=== PATIENT | female | born 1995 | race Two or more races ===

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

== ENCOUNTER 2017-05-18 14:09 | Emergency (ER) | payer OTHER ==
[2017-05-18 14:34] VITALS: BP 139/86
--- NOTE | 2017-05-18 15:26 | ED ---
Throat Pain/Nasal Congestion - HPI Summary HPI Summary: Pt here w/ URI sx x 2 days. Started as rhinorrhea yesterday and woke with facial fullness/congestion today. Generalized REDDY. Denies fever, chills, N/V/D, otalgia but does report ear congestion. Denies ST, visual change, trouble breathing or swallowing and no cough or rash. Tried robitussin last night which helped her sleep but feels worse this morning. Would like ibuprofen for headache and facial pressure. Denies asthma, COPD -smokes but hasn't since this started - can't tolerate it. - History of Current Complaint Chief Complaint: EDGeneral Time Seen by Provider: 05/18/17 14:50 Hx Obtained From: Patient - Allergies/Home Medications Allergies/Adverse Reactions: Allergies Allergy/AdvReac Type Severity Reaction Status Date / Time Amoxicillin [From Augmentin] Allergy Unknown Verified 09/24/16 13:20 Reaction Details Azithromycin [From Zithromax] Allergy Unknown Verified 09/24/16 13:20 Reaction Details Clavulanic Acid Allergy Unknown Verified 09/24/16 13:20 [From Augmentin] Reaction Details PMH/Surg Hx/FS Hx/Imm Hx Previously Healthy: Yes Endocrine/Hematology History: Reports: Hx Diabetes - diet controlled Denies: Hx Thyroid Disease Cardiovascular History: Reports: Hx Hypercholesterolemia Denies: Hx Hypertension, Hx Peripheral Vascular Disease Respiratory History: Denies: Hx Asthma Musculoskeletal History: Denies: Hx Arthritis, Hx Rheumatoid Arthritis, Hx Back Problems, Hx Bursitis , Hx Congenital Bone Abnormalities, Hx Fibromyalgia, Hx Gout, Hx Orthopedic Injury, Hx Osteoporosis, Hx Scoliosis, Hx Tendonitis, Other Musculoskeletal History Sensory History: Reports: Hx Contacts or Glasses Denies: Hx Cataracts, Hx Glaucoma Opthamlomology History: Reports: Hx Contacts or Glasses Denies: Hx Cataracts, Hx Glaucoma Neurological History: Reports: Hx Headaches - when stressed Denies: Hx Dementia, Hx Developmental Delay, Hx Migraine, Hx Nerve Disease, Hx Seizures, Hx Spinal Cord Injury, Hx Transient Ischemic Attacks (TIA), Other Neuro Impairments/Disorders Psychiatric History: Denies: Hx Anxiety, Hx Eating Disorder, Hx Depression, Hx of Violent Episodes Against Others - Immunization History Date of Tetanus Vaccine: unk Date of Influenza Vaccine: unk Immunizations Up to Date: Yes Infectious Disease History: No Infectious Disease History: Denies: Hx Clostridium Difficile, Hx Hepatitis, Hx Human Immunodeficiency Virus (HIV), Hx of Known/Suspected MRSA, Hx Tuberculosis, Hx Known/Suspected VRE , Hx Known/Suspected VRSA, History Other Infectious Disease, Traveled Outside the [place] in Last 30 Days - Family History Known Family History: Negative: Seizure Disorder - Social History Occupation: Employed Part-time - [employer] Lives: With Family Alcohol Use: Rare Alcohol Amount: 2-4 drinks Hx Substance Use: Yes Substance Use Type: Reports: Marijuana - occasionally, recreationally Substance Use Comment - Amount & Last Used: once per week Hx Tobacco Use: Yes Smoking Status (MU): Current Every Day Smoker Type: Cigarettes Have You Smoked in the Last Year: No Review of Systems Constitutional: Negative Negative: Fever, Chills Positive: Photophobia - mild. Negative: Blurred Vision, Diplopia, Drainage, Erythema Positive: Nasal Discharge - nasal congestion. Negative: Sore Throat, Ear Ache Cardiovascular: Negative Negative: Chest Pain Respiratory: Negative Negative: Shortness Of Breath, Cough Gastrointestinal: Negative Negative: Abdominal Pain, Vomiting, Diarrhea, Nausea Positive: no symptoms reported Musculoskeletal: Negative Skin: Negative Positive: Headache - see HPI Psychological: Normal All Other Systems Reviewed And Are Negative: Yes Physical Exam Triage Information Reviewed: Yes Vital Signs On Initial Exam: Initial Vitals Temp Pulse Resp BP Pulse Ox 98.4 F 89 17 144/72 98 05/18/17 14:22 05/18/17 14:22 05/18/17 14:22 05/18/17 14:22 05/18/17 14:22 Vital Signs Reviewed: Yes Appearance: Positive: Well-Appearing, No Pain Distress, Obese Skin: Positive: Warm, Dry - no rash observed Head/Face: Positive: Normal Head/Face Inspection - warm to touch - sinuses NTTP Eyes: Positive: Normal, EOMI, CHOLO, Conjunctiva Clear. Negative: Conjunctiva Inflammed, Discharge ENT: Positive: Hearing grossly normal, Pharyngeal erythema - cobblestoning - no edema, Nasal congestion, Other - TM's occluded by cerumen B/L. Negative: Nasal drainage, Tonsillar swelling, Tonsillar exudate, Trismus Neck: Positive: Supple, Nontender, No Lymphadenopathy Respiratory/Lung Sounds: Positive: Clear to Auscultation, Breath Sounds Present. Negative: Rales, Rhonchi, Wheezes Cardiovascular: Positive: Normal, RRR, S1, S2 Abdomen Description: Positive: Nontender, No Organomegaly, Soft Bowel Sounds: Positive: Present Musculoskeletal: Positive: Normal, Strength/ROM Intact Neurological: Positive: Normal, Sensory/Motor Intact, Alert, Oriented to Person Place, Time, CN Intact II-III Psychiatric: Positive: Normal Diagnostics - Vital Signs Vital Signs Temp Pulse Resp BP Pulse Ox 05/18/17 14:32 98.4 F 78 18 139/86 98 05/18/17 14:22 98.4 F 89 17 144/72 98 - Laboratory Lab Statement: Any lab studies that have been ordered have been reviewed, and results considered in the medical decision making process. EENT Course/Dx - Diagnoses Provider Diagnoses: URI, acute Discharge - Discharge Plan Condition: Stable Disposition: HOME Patient Education Materials: Upper Respiratory Infection (ED) Forms: *Work Release Referrals: William Waters, AIRCRAFT ENGINE CYLINDER MECHANIC [Primary Care Provider] - Additional Instructions: Nasal wash (netti pot) & throat gargle 2 x day with 8 ounces of warm water + 1/ 4 teaspoon of salt You may try Afrin only as directed on bottle for sinus congestion/ear congestion - DO NOT OVERUSE You may also try Sudafed tablets for congestion - do not take before bed as they may be stimulating Drink 60+ ounces of water daily Sleep 8+ hours per night Avoid Dairy and sugar Hot herbal/decaf tea with lemon & honey Chicken broth (preferably organic, free range chicken) Cough drops/throat lozenges Humidifier in house, but especially near bed at night Try a facial steam with or without eucalyptus essential oil OR Vicks vapor rub Ibuprofen with food for pain, swelling Consider taking Vitamin D3 5,000iu and Vitamin C 1,000mg every day during illness Follow-up with PCP if symptoms persist or worsen
[2017-05-18] MEDS ORDERED: Ibuprofen TAB* 800 MG PO ONE (15:27)
== END 2017-05-18 16:31 | disposition home or self-care (01) ==
LOC: ED 14:09
DX: J06.9 Acute upper respiratory infection, unspecified (principal); J44.9 Chronic obstructive pulmonary disease, unspecified; E11.9 Type 2 diabetes mellitus without complications; E78.00 Pure hypercholesterolemia, unspecified; F17.210 Nicotine dependence, cigarettes, uncomplicated
CPT/HCPCS: 99282; A9270-GY

== ENCOUNTER 2017-05-20 12:29 | Emergency (ER) | payer OTHER ==
[2017-05-20 12:38] VITALS: BP 135/100
--- NOTE | 2017-05-20 13:36 | ED ---
Flakito Quinonez Alfonso, scribed for Alexsander Weathers MD on 05/20/17 at 1327 . Complex/Multi-Sys Presentation - HPI Summary HPI Summary: This patient is a 21 year old F presenting to [facility] with a chief complaint of sinus pressure since 4 days ago. She was seen at [facility] two days ago with a provider diagnosis of acute URI. The patient rates the pain 8/10 in severity. Symptoms aggravated by nothing. Symptoms alleviated by nothing. Symptoms not alleviated by OTC medications. Patient reports chills, SOB, productive cough ( yellow phlegm), headache, ear pain, and sore throat. Patient denies fever. Tobacco abuse disorder. PMHx includes HLD, anxiety and depression. - History Of Current Complaint Chief Complaint: EDUpperRespComplaint Time Seen by Provider: 05/20/17 13:19 Hx Obtained From: Patient Onset/Duration: Sudden Onset, Lasting Days - 4, Still Present Timing: Constant Severity Currently: Moderate Severity Initially: Moderate Aggravating Factor(s): Nothing Alleviating Factor(s): Nothing Associated Signs And Symptoms: Positive: Other - chills, SOB, productive cough ( yellow phlegm), headache, ear pain, and sore throat. Patient denies fever. - Allergies/Home Medications Allergies/Adverse Reactions: Allergies Allergy/AdvReac Type Severity Reaction Status Date / Time Amoxicillin [From Augmentin] Allergy Unknown Verified 09/24/16 13:20 Reaction Details Azithromycin [From Zithromax] Allergy Unknown Verified 09/24/16 13:20 Reaction Details Clavulanic Acid Allergy Unknown Verified 09/24/16 13:20 [From Augmentin] Reaction Details PMH/Surg Hx/FS Hx/Imm Hx Endocrine/Hematology History: Reports: Hx Diabetes - diet controlled Denies: Hx Thyroid Disease Cardiovascular History: Reports: Hx Hypercholesterolemia Denies: Hx Hypertension, Hx Peripheral Vascular Disease Respiratory History: Denies: Hx Asthma Musculoskeletal History: Denies: Hx Arthritis, Hx Rheumatoid Arthritis, Hx Back Problems, Hx Bursitis , Hx Congenital Bone Abnormalities, Hx Fibromyalgia, Hx Gout, Hx Orthopedic Injury, Hx Osteoporosis, Hx Scoliosis, Hx Tendonitis, Other Musculoskeletal History Sensory History: Reports: Hx Contacts or Glasses Denies: Hx Cataracts, Hx Glaucoma Opthamlomology History: Reports: Hx Contacts or Glasses Denies: Hx Cataracts, Hx Glaucoma Neurological History: Reports: Hx Headaches - when stressed Denies: Hx Dementia, Hx Developmental Delay, Hx Migraine, Hx Nerve Disease, Hx Seizures, Hx Spinal Cord Injury, Hx Transient Ischemic Attacks (TIA), Other Neuro Impairments/Disorders Psychiatric History: Denies: Hx Anxiety, Hx Eating Disorder, Hx Depression, Hx of Violent Episodes Against Others - Immunization History Date of Tetanus Vaccine: unk Date of Influenza Vaccine: unk Infectious Disease History: No Infectious Disease History: Denies: Hx Clostridium Difficile, Hx Hepatitis, Hx Human Immunodeficiency Virus (HIV), Hx of Known/Suspected MRSA, Hx Tuberculosis, Hx Known/Suspected VRE , Hx Known/Suspected VRSA, History Other Infectious Disease, Traveled Outside the [place] in Last 30 Days - Family History Known Family History: Negative: Seizure Disorder - Social History Alcohol Use: Rare Alcohol Amount: 2-4 drinks Hx Substance Use: Yes Substance Use Type: Reports: Marijuana - occasionally, recreationally Substance Use Comment - Amount & Last Used: once per week Hx Tobacco Use: Yes Smoking Status (MU): Current Every Day Smoker Type: Cigarettes Have You Smoked in the Last Year: No Review of Systems Positive: Chills. Negative: Fever Positive: Sore Throat, Ear Ache, Other - Sinus pressure Positive: Shortness Of Breath, Cough Positive: Headache All Other Systems Reviewed And Are Negative: Yes Physical Exam Triage Information Reviewed: Yes Vital Signs On Initial Exam: Initial Vitals Temp Pulse Resp BP Pulse Ox 97.4 F 98 16 135/100 100 05/20/17 12:34 05/20/17 12:34 05/20/17 12:34 05/20/17 12:34 05/20/17 12:34 Vital Signs Reviewed: Yes Appearance: Positive: No Pain Distress, Ill-Appearing - Mild Skin: Positive: Warm, Skin Color Reflects Adequate Perfusion, Dry Head/Face: Positive: Normal Head/Face Inspection Eyes: Positive: EOMI, CHOLO ENT: Positive: Normal ENT inspection, Other - Posterior pharynx benign Neck: Positive: Supple, Nontender Respiratory/Lung Sounds: Positive: Breath Sounds Present, Other - Fine scattered rhonchi. No wheezing. Cardiovascular: Positive: RRR Abdomen Description: Positive: Nontender, Soft Bowel Sounds: Positive: Present Musculoskeletal: Positive: Normal, Strength/ROM Intact Neurological: Positive: Normal, Sensory/Motor Intact, Alert, Oriented to Person Place, Time Psychiatric: Positive: Affect/Mood Appropriate Diagnostics - Vital Signs Vital Signs Temp Pulse Resp BP Pulse Ox 05/20/17 12:34 97.4 F 98 16 135/100 100 - Laboratory Lab Statement: Any lab studies that have been ordered have been reviewed, and results considered in the medical decision making process. Complex Multi-Symp Course/Dx Course Of Treatment: Rx Doxy and albuterol - Diagnoses Provider Diagnoses: Bronchitis with bronchospasm Discharge - Discharge Plan Condition: Stable Disposition: HOME Prescriptions: Albuterol HFA INHALER* [Ventolin HFA Inhaler*] 1 - 2 puff INH Q4H PRN #1 mdi PRN Reason: Dyspnea DOXYcycline CAP(*) [DOXYcycline 100MG CAP(*)] 100 mg PO BID #20 cap Patient Education Materials: Acute Bronchitis (ED), Bronchospasm (ED), Wheezing (ED) Forms: *Work Release Referrals: William Waters, CHILD AND FAMILY COUNSELOR [Primary Care Provider] - Additional Instructions: FOLLOW UP WITH YOUR DOCTOR. RETURN TO THE EMERGENCY DEPARTMENT FOR ANY WORSENING OF YOUR CONDITION OR QUESTIONS OR CONCERNS. The documentation as recorded by the Flakito medel Alfonso accurately reflects the service I personally performed and the decisions made by me, Alexsander Weathers MD.
== END 2017-05-20 13:49 | disposition home or self-care (01) ==
LOC: ED 12:29
DX: J40 Bronchitis, not specified as acute or chronic (principal)
CPT/HCPCS: 99281

== ENCOUNTER → 2018-01-06 18:15 | Emergency (ER) | payer SELFPAY ==
--- NOTE | 2018-01-06 19:39 | RAD ---
INDICATION: Left hand injury. TECHNIQUE: 4 views of the left hand were obtained. FINDINGS: The bones are in normal alignment. No fracture is seen. Joint spaces appear maintained. IMPRESSION: NO EVIDENCE FOR FRACTURE.
[2018-01-06 20:17] VITALS: BP 134/84
--- NOTE | 2018-01-06 20:41 | ED ---
Upper Extremity Pain - HPI Summary HPI Summary: Pt. is a 22-year-old female who presents emergency department for pain to her left hand. Majority of pain is located along the left thumb extending into forearm. Pain is worse with movement of hand and cramping. Pt. notes she uses her hands constantly at work as she works at [employer] and a [employer]. Patient does not recall any specific injuries. Has been taking Motrin with mild relief of pain. Symptoms are mild in severity. - History of Current Complaint Chief Complaint: EDExtremityUpper Stated Complaint: LT HAND PAIN Time Seen by Provider: 01/06/18 18:34 Hx Obtained From: Patient Hx Last Menstrual Period: 10/04/12 - Allergies/Home Medications Allergies/Adverse Reactions: Allergies Allergy/AdvReac Type Severity Reaction Status Date / Time amoxicillin [From Augmentin] Allergy Unknown Verified 01/06/18 18:36 Reaction Details azithromycin [From Zithromax] Allergy Unknown Verified 01/06/18 18:36 Reaction Details clavulanic acid Allergy Unknown Verified 01/06/18 18:36 [From Augmentin] Reaction Details Home Medications: Home Medications NK [No Home Medications Reported] 01/06/18 [History Confirmed 01/06/18] PMH/Surg Hx/FS Hx/Imm Hx Previously Healthy: Yes Endocrine/Hematology History: Reports: Hx Diabetes - diet controlled Denies: Hx Thyroid Disease Cardiovascular History: Reports: Hx Hypercholesterolemia Denies: Hx Hypertension, Hx Peripheral Vascular Disease Respiratory History: Denies: Hx Asthma Musculoskeletal History: Denies: Hx Arthritis, Hx Rheumatoid Arthritis, Hx Back Problems, Hx Bursitis , Hx Congenital Bone Abnormalities, Hx Fibromyalgia, Hx Gout, Hx Orthopedic Injury, Hx Osteoporosis, Hx Scoliosis, Hx Tendonitis, Other Musculoskeletal History Sensory History: Reports: Hx Contacts or Glasses Denies: Hx Cataracts, Hx Glaucoma Opthamlomology History: Reports: Hx Contacts or Glasses Denies: Hx Cataracts, Hx Glaucoma Neurological History: Reports: Hx Headaches - when stressed Denies: Hx Dementia, Hx Developmental Delay, Hx Migraine, Hx Nerve Disease, Hx Seizures, Hx Spinal Cord Injury, Hx Transient Ischemic Attacks (TIA), Other Neuro Impairments/Disorders Psychiatric History: Denies: Hx Anxiety, Hx Eating Disorder, Hx Depression, Hx of Violent Episodes Against Others - Immunization History Date of Tetanus Vaccine: unk Date of Influenza Vaccine: unk Infectious Disease History: No Infectious Disease History: Denies: Hx Clostridium Difficile, Hx Hepatitis, Hx Human Immunodeficiency Virus (HIV), Hx of Known/Suspected MRSA, Hx Tuberculosis, Hx Known/Suspected VRE , Hx Known/Suspected VRSA, History Other Infectious Disease, Traveled Outside the [place] in Last 30 Days - Family History Known Family History: Negative: Seizure Disorder - Social History Occupation: Employed Full-time Lives: With Family Alcohol Use: None Alcohol Amount: 2-4 drinks Hx Substance Use: Yes Substance Use Type: Reports: None Substance Use Comment - Amount & Last Used: once per week Hx Tobacco Use: Yes Smoking Status (MU): Heavy Every Day Tobacco Smoker Type: Cigarettes Have You Smoked in the Last Year: No Review of Systems Positive: Other - left hand pain Negative: Weakness, Paresthesia, Numbness All Other Systems Reviewed And Are Negative: Yes Physical Exam Triage Information Reviewed: Yes Vital Signs On Initial Exam: Initial Vitals Temp Pulse Resp BP Pulse Ox 98.1 F 94 16 131/73 100 01/06/18 18:17 01/06/18 18:17 01/06/18 18:17 01/06/18 18:17 01/06/18 18:17 Vital Signs Reviewed: Yes Appearance: Positive: Well-Appearing - Patient sitting on bed in no acute distress. Pleasant. Skin: Positive: Warm, Dry Head/Face: Positive: Normal Head/Face Inspection Eyes: Positive: Normal, CHOLO Neck: Positive: Supple Musculoskeletal: Positive: Other - Pain on palpation to the left thumb that extends forearm. Positive Laura test. No edema, ecchymosis, wounds, erythema, induration or fluctuance. Extremities is neurovascularly intact. Neurological: Positive: Normal, CN Intact II-III Psychiatric: Positive: Normal Procedures - Splinting Pre-Made Type: velcro Pre-Proc Neuro Vasc Exam: normal Post-Proc Neuro Vasc Exam: normal Diagnostics - Vital Signs Vital Signs Temp Pulse Resp BP Pulse Ox 01/06/18 20:16 98 F 82 17 134/84 100 01/06/18 18:17 98.1 F 94 16 131/73 100 - Laboratory Lab Statement: Any lab studies that have been ordered have been reviewed, and results considered in the medical decision making process. Course/Dx - Course Course Of Treatment: Patient presenting with atraumatic pain to her left hand. Suspect tendinitis due to overuse. X-rays negative for acute findings, reading per radiology. Results were discussed. Velcro wrist splint was placed for comfort. Advised patient to ice and elevate intermittently. NSAIDs for pain as directed. Activity as tolerated. Follow-up with PCP. Patient understands and agrees with plan. - Diagnoses Differential Diagnosis/HQI/PQRI: Positive: Arthritis, Contusion, Fracture ( Closed), Strain, Sprain Provider Diagnoses: Tendinitis Discharge - Sign-Out/Discharge Documenting (check all that apply): Discharge/Admit/Transfer - Discharge Plan Condition: Good Disposition: HOME Patient Education Materials: Tendinitis (ED) Referrals: William Waters, [employer] [Primary Care Provider] - Additional Instructions: Schedule a follow up appointment with PCP Wear splint for comfort Ice and elevate NSAIDS for pain as directed Avoid over use - Billing Disposition and Condition Condition: GOOD Disposition: HOME
== END | disposition home or self-care (01) ==
LOC: ED 18:15
DX: M77.9 Enthesopathy, unspecified (principal); M79.642 Pain in left hand; F17.210 Nicotine dependence, cigarettes, uncomplicated
CPT/HCPCS: 99282

== ENCOUNTER 2018-06-04 14:34 | Emergency (ER) | payer SELFPAY ==
--- NOTE | 2018-06-04 16:03 | RAD ---
HISTORY: r/o ectopic , age by dates of 7 weeks and 0 days COMPARISONS: None TECHNIQUE: Multiple transverse and longitudinal ultrasound images were obtained of the pelvis using grayscale and color Doppler imaging using the endovaginal transducer. FINDINGS: UTERUS: The uterus is normal in shape, size, contour, and echotexture. GESTATION: There is a small cyst of the endometrium, possibly a gestational sac. . The mean sac diameter measures 0.29 cm for a gestational age of 4 weeks and 5 days . The JOAO is February 06, 2019. This is discordant with the age by dates . The endometrium measures 1.2 cm. cardiac motion is not detected Gross movement is not identified. anatomy cannot be assessed secondary to early dates. The amniotic fluid is qualitatively normal. There are no retroplacental fluid collections. CUL-DE-SAC: There is no free fluid within the cul-de-sac. RIGHT OVARY: The right ovary measures 2.5 x 2.4 x 2.1 cm. There is a corpus luteum measuring 1.6 x 1.3 x 1.2 LEFT OVARY: The left ovary measures 3.2 x 1.8 x 1.6 cm. The left ovary is unremarkable. BLADDER: The bladder is not well visualized. IMPRESSION: 1. THERE IS A SMALL CYSTIC STRUCTURE IN THE ENDOMETRIUM WHICH MAY REPRESENT A GESTATIONAL SAC WITHOUT POLE. BASED ON MEAN SAC DIAMETER, THIS CORRESPONDS TO GESTATIONAL AGE OF 4 WEEKS AND 5 DAYS, WHICH IS DISCORDANT WITH THE AGE BY DATES. 2. RECOMMEND CORRELATION WITH SERIAL BETA-HCG LEVELS AND FOLLOW-UP IMAGING.
[2018-06-04 16:22] LABS: ABS Basophils 0 10^3/ul (0-0.2); ABS Eosinophils 0.2 10^3/ul (0-0.6); ABS Lymphocytes 2.6 10^3/ul (1.0-4.8); ABS Monocytes 0.6 10^3/ul (0-0.8); ABS Neutrophils 6.4 10^3/ul (1.5-7.7); ABS Nucleated RBC 0 10^3/ul; Eosinophil % 1.8 % (0-6); Hematocrit 41 % (35-47); Hemoglobin 14.1 g/dl (12.0-16.0); Lymphocyte % 26.3 % (25-47); Mean Corpuscular HGB Conc 35 g/dl (31-36); Mean Corpuscular Hemoglobin 29 pg (27-31); Mean Corpuscular Volume 84 fL (80-97); Mean Platelet Volume 7.9 um3 (7.4-10.4); Nucleated Red Blood Cells % 0; Platelet Count 290 10^3/ul (150-450); Red Blood Count 4.84 10^6/ul (4.00-5.40); Red Cell Distribution Width 13 % (10.5-15); White Blood Count 9.8 10^3/ul (3.5-10.8)
[2018-06-04 16:46] LABS: EGFR Non-African American 110.3 (>60)
--- NOTE | 2018-06-04 18:25 | ED ---
- HPI Summary HPI Summary: [facility] by [facility] for further evaluation to rule out possible ectopic . Patient states this is first time , unsure how far along she is. Patient states she has been having bilateral lower abdominal cramps for one week. Cramping described as intermittent, approximately one every 45 minutes, lasting for a few minutes each time. Denies vaginal discharge, pain, bleeding, urinary symptoms, N/V, fever, SOB, CP. Medical history is DM. - History of Current Complaint Chief Complaint: EDOBProblems Stated Complaint: POSSIBLE ECTOPIC Time Seen by Provider: 06/04/18 17:15 Hx Obtained From: Patient Chief Complaint: Pain Onset/Duration: Started Days Ago Timing: Intermittent, Lasting Minutes Severity: Moderate Current Severity: Moderate Pain Intensity: 4 Location of Pain: Left Side, Right Side Character: Cramping Aggravating Factors: Nothing Alleviating Factors: Nothing - Assessment Hx Now: No - Allergies/Home Medications Allergies/Adverse Reactions: Allergies Allergy/AdvReac Type Severity Reaction Status Date / Time amoxicillin [From Augmentin] Allergy Unknown Verified 01/06/18 18:36 Reaction Details azithromycin [From Zithromax] Allergy Unknown Verified 01/06/18 18:36 Reaction Details clavulanic acid Allergy Unknown Verified 01/06/18 18:36 [From Augmentin] Reaction Details PMH/Surg Hx/FS Hx/Imm Hx Endocrine/Hematology History: Reports: Hx Diabetes - diet controlled Denies: Hx Anticoagulant Therapy, Hx Thyroid Disease Cardiovascular History: Reports: Hx Hypercholesterolemia Denies: Hx Cardiac Arrest, Hx Hypertension, Hx Peripheral Vascular Disease Respiratory History: Denies: Hx Asthma History: Denies: Hx Dialysis Musculoskeletal History: Denies: Hx Arthritis, Hx Rheumatoid Arthritis, Hx Back Problems, Hx Bursitis , Hx Congenital Bone Abnormalities, Hx Fibromyalgia, Hx Gout, Hx Orthopedic Injury, Hx Osteoporosis, Hx Scoliosis, Hx Tendonitis, Other Musculoskeletal History Sensory History: Reports: Hx Contacts or Glasses Denies: Hx Cataracts, Hx Glaucoma Opthamlomology History: Reports: Hx Contacts or Glasses Denies: Hx Cataracts, Hx Glaucoma Neurological History: Reports: Hx Headaches - when stressed Denies: Hx Dementia, Hx Developmental Delay, Hx Migraine, Hx Nerve Disease, Hx Seizures, Hx Spinal Cord Injury, Hx Transient Ischemic Attacks (TIA), Other Neuro Impairments/Disorders Psychiatric History: Denies: Hx Anxiety, Hx Eating Disorder, Hx Depression, Hx of Violent Episodes Against Others - Immunization History Date of Tetanus Vaccine: unk Date of Influenza Vaccine: unk Infectious Disease History: No Infectious Disease History: Denies: Hx Clostridium Difficile, Hx Hepatitis, Hx Human Immunodeficiency Virus (HIV), Hx of Known/Suspected MRSA, Hx Tuberculosis, Hx Known/Suspected VRE , Hx Known/Suspected VRSA, History Other Infectious Disease, Traveled Outside the [place] in Last 30 Days - Family History Known Family History: Negative: Seizure Disorder - Social History Alcohol Use: None Alcohol Amount: 2-4 drinks Hx Substance Use: Yes Substance Use Type: Reports: None Substance Use Comment - Amount & Last Used: once per week Hx Tobacco Use: Yes Smoking Status (MU): Heavy Every Day Tobacco Smoker Type: Cigarettes Have You Smoked in the Last Year: No Review of Systems Constitutional: Negative Eyes: Negative ENT: Negative Cardiovascular: Negative Respiratory: Negative Positive: Abdominal Pain Genitourinary: Negative Musculoskeletal: Negative Skin: Negative Neurological: Negative Psychological: Normal All Other Systems Reviewed And Are Negative: Yes Physical Exam - Summary Physical Exam Summary: Patient mildly tender to palpation right lower quadrant and left lower quadrant. Abdominal exam otherwise unremarkable. - Physical Exam Triage Information Reviewed: Yes Vital Signs Reviewed: Yes Appearance: Positive: Well-Appearing Skin: Positive: Warm Head/Face: Positive: Normal Head/Face Inspection Eyes: Positive: Normal Neck: Positive: Supple Respiratory/Lung Sounds: Positive: Clear to Auscultation Cardiovascular: Positive: Normal Abdomen Description: Positive: Other: Musculoskeletal: Positive: Normal Neurological: Positive: Normal Psychiatric: Positive: Normal AVPU Assessment: Alert - Rigoberto Coma Scale Eye: 4 - Spontaneous Motor: 6 - Obeys Commands Verbal: 5 - Oriented Coma Scale Total: 15 Diagnostics - Vital Signs Vital Signs Temp Pulse Resp BP Pulse Ox 06/04/18 17:24 120/76 06/04/18 17:23 113 96 06/04/18 14:37 97.0 F 96 17 140/75 97 - Laboratory Lab Results: Lab Results 06/04/18 06/04/18 06/04/18 Range/Units 16:12 16:12 16:12 WBC 9.8 (3.5-10.8) 10^3/ul RBC 4.84 (4.00-5.40) 10^6/ul Hgb 14.1 (12.0-16.0) g/dl Hct 41 (35-47) % MCV 84 (80-97) fL MCH 29 (27-31) pg MCHC 35 (31-36) g/dl RDW 13 (10.5-15) % Plt Count 290 (150-450) 10^3/ul MPV 7.9 (7.4-10.4) um3 Neut % (Auto) 65.5 (38-83) % Lymph % (Auto) 26.3 (25-47) % Irion % (Auto) 5.9 (0-7) % Eos % (Auto) 1.8 (0-6) % Baso % (Auto) 0.5 (0-2) % Absolute Neuts (auto) 6.4 (1.5-7.7) 10^3/ul Absolute Lymphs (auto) 2.6 (1.0-4.8) 10^3/ul Absolute Monos (auto) 0.6 (0-0.8) 10^3/ul Absolute Eos (auto) 0.2 (0-0.6) 10^3/ul Absolute Basos (auto) 0 (0-0.2) 10^3/ul Absolute Nucleated RBC 0 10^3/ul Nucleated RBC % 0 Sodium 136 (135-145) mmol/L Potassium 3.8 (3.5-5.0) mmol/L Chloride 107 (101-111) mmol/L Carbon Dioxide 23 (22-32) mmol/L Anion Gap 6 (2-11) mmol/L BUN 11 (6-24) mg/dL Creatinine 0.68 (0.51-0.95) mg/dL Est GFR ( Amer) 133.5 (>60) Est GFR (Non-Af Amer) 110.3 (>60) BUN/Creatinine Ratio 16.2 (8-20) Glucose 109 H (70-100) mg/dL Calcium 9.4 (8.6-10.3) mg/dL Total Bilirubin 0.30 (0.2-1.0) mg/dL AST 17 (13-39) U/L ALT 32 (7-52) U/L Alkaline Phosphatase 43 (34-104) U/L C-Reactive Protein 8.88 H (<8.01) mg/L Total Protein 7.2 (6.4-8.9) g/dL Albumin 4.1 (3.2-5.2) g/dL Globulin 3.1 (2-4) g/dL Albumin/Globulin Ratio 1.3 (1-3) TSH 1.54 (0.34-5.60) mcIU/mL Beta HCG, Quant Cancelled 06/04/18 Range/Units 16:12 WBC (3.5-10.8) 10^3/ul RBC (4.00-5.40) 10^6/ul Hgb (12.0-16.0) g/dl Hct (35-47) % MCV (80-97) fL MCH (27-31) pg MCHC (31-36) g/dl RDW (10.5-15) % Plt Count (150-450) 10^3/ul MPV (7.4-10.4) um3 Neut % (Auto) (38-83) % Lymph % (Auto) (25-47) % Irion % (Auto) (0-7) % Eos % (Auto) (0-6) % Baso % (Auto) (0-2) % Absolute Neuts (auto) (1.5-7.7) 10^3/ul Absolute Lymphs (auto) (1.0-4.8) 10^3/ul Absolute Monos (auto) (0-0.8) 10^3/ul Absolute Eos (auto) (0-0.6) 10^3/ul Absolute Basos (auto) (0-0.2) 10^3/ul Absolute Nucleated RBC 10^3/ul Nucleated RBC % Sodium (135-145) mmol/L Potassium (3.5-5.0) mmol/L Chloride (101-111) mmol/L Carbon Dioxide (22-32) mmol/L Anion Gap (2-11) mmol/L BUN (6-24) mg/dL Creatinine (0.51-0.95) mg/dL Est GFR ( Amer) (>60) Est GFR (Non-Af Amer) (>60) BUN/Creatinine Ratio (8-20) Glucose (70-100) mg/dL Calcium (8.6-10.3) mg/dL Total Bilirubin (0.2-1.0) mg/dL AST (13-39) U/L ALT (7-52) U/L Alkaline Phosphatase (34-104) U/L C-Reactive Protein (<8.01) mg/L Total Protein (6.4-8.9) g/dL Albumin (3.2-5.2) g/dL Globulin (2-4) g/dL Albumin/Globulin Ratio (1-3) TSH (0.34-5.60) mcIU/mL Beta HCG, Quant 252.70 Result Diagrams: 06/04/18 16:12 06/04/18 16:12 Lab Statement: Any lab studies that have been ordered have been reviewed, and results considered in the medical decision making process. Course/Dx - Course Course Of Treatment: [facility] for further evaluation to rule out possible ectopic . Patient states this is first time , unsure how far along she is. Patient states she has been having bilateral lower abdominal cramps for one week. Cramping described as intermittent, approximately one every 45 minutes, lasting for a few minutes each time. Denies vaginal discharge, pain, bleeding, urinary symptoms, N/V, fever, SOB, CP. Medical history is DM. . Physical exam: Patient mildly tender to palpation right lower quadrant and left lower quadrant. Abdominal exam otherwise unremarkable. HCG 257. Ultrasound negative at this point for ectopic. Gestational age approximated at 4 weeks, 5 days. Vital signs within normal limits. Repeat serial hCG and serial ultrasounds. Patient understands and approves of plan. - Diagnoses Provider Diagnoses: Discharge - Sign-Out/Discharge Documenting (check all that apply): Patient Departure - Discharge Plan Condition: Stable Disposition: HOME Patient Education Materials: (ED) Referrals: William Waters, [facility] [Primary Care Provider] - Additional Instructions: HCG 252 today. Repeat hCG level and ultrasound in 48 hours. Follow-up with OB/ [facility] CAREG[facility]. Return to the ED for any new or worsening symptoms - Billing Disposition and Condition Condition: STABLE Disposition: Home
[2018-06-04 18:38] VITALS: BP 142/95
== END 2018-06-04 18:40 | disposition home or self-care (01) ==
LOC: ED 14:34
DX: O26.891 Other specified pregnancy related conditions, first trimester (principal); Z3A.01 Less than 8 weeks gestation of pregnancy; R10.2 Pelvic and perineal pain; O99.331 Smoking (tobacco) complicating pregnancy, first trimester; F17.210 Nicotine dependence, cigarettes, uncomplicated; Z88.1 Allergy status to other antibiotic agents; E11.9 Type 2 diabetes mellitus without complications; E78.00 Pure hypercholesterolemia, unspecified
CPT/HCPCS: 36415; 76817; 80053; 84443; 84702; 85025; 86140; 99282

== ENCOUNTER 2018-10-25 18:50 | Emergency (ER) | payer BC, MEDICAID ==
--- NOTE | 2018-10-25 19:27 | ED ---
Shortness of Breath - HPI Summary HPI Summary: A 23 y/o female brought in by [facility] ambulance presents to [facility] with a chief complaint of left sided chest pain since 16:45 10/25/18. The patient reports that she was about 30 minutes into her shift at work when she started feeling chest pain. She describes her pain as constantly dull with intermittent sharp spurts of pain. She says that her pain is under her left lower ribs. At triage the patient rated her pain as a 0/10 in severity. She claims that at work she had a stomach ache and a headache. She was drinking coffee, and then when her chest pain started she drank water and went outside to smoke when she felt like she couldnt take deep breaths. She denies SOB but claims that she was having trouble taking deep breaths. She thought that she was having an allergic reaction to MSG from a sandwich. She claims that her last attack was 5-6 years ago. She took 400mg ibuprofen and used an inhaler prior to the ambulance ride to the ED. She denies current N/V, abdominal pain, dysuria, hematuria, diarrhea , constipation, leg swelling, or any recent travels or surgery. She is still feeling lightheaded. Exertion aggravates her pain. She reports that ever since she started smoking she felt colder. She started smoking 5 years [employer]. Her LNMP was 09/30/18. She denies a Hx of asthma but she has a FHx of asthma and PR. Vital signs while in room HR: 86bpm, O2 Sat: 98, BP: 128/54 - History of Current Complaint Chief Complaint: EDShortnessOfBreath Hx Obtained From: Patient Onset/Duration: Sudden Onset, Lasting Minutes, Still Present Timing: Constant Current Severity: Mild Dyspnea At: Exertion Aggrevating Factors: Deep Breaths Alleviating Factors: Nothing Associated Signs & Symptoms: Negative - Allergy/Home Medications Allergies/Adverse Reactions: Allergies Allergy/AdvReac Type Severity Reaction Status Date / Time amoxicillin [From Augmentin] Allergy Unknown Verified 10/25/18 19:04 Reaction Details azithromycin [From Zithromax] Allergy Unknown Verified 10/25/18 19:04 Reaction Details clavulanic acid Allergy Unknown Verified 10/25/18 19:04 [From Augmentin] Reaction Details PMH/Surg Hx/FS Hx/Imm Hx Endocrine/Hematology History: Reports: Hx Diabetes - diet controlled Denies: Hx Anticoagulant Therapy, Hx Thyroid Disease Cardiovascular History: Reports: Hx Hypercholesterolemia Denies: Hx Cardiac Arrest, Hx Hypertension, Hx Peripheral Vascular Disease Respiratory History: Denies: Hx Asthma History: Denies: Hx Dialysis Musculoskeletal History: Denies: Hx Arthritis, Hx Rheumatoid Arthritis, Hx Back Problems, Hx Bursitis , Hx Congenital Bone Abnormalities, Hx Fibromyalgia, Hx Gout, Hx Orthopedic Injury, Hx Osteoporosis, Hx Scoliosis, Hx Tendonitis, Other Musculoskeletal History Sensory History: Reports: Hx Contacts or Glasses Denies: Hx Cataracts, Hx Glaucoma Opthamlomology History: Reports: Hx Contacts or Glasses Denies: Hx Cataracts, Hx Glaucoma Neurological History: Reports: Hx Headaches - when stressed Denies: Hx Dementia, Hx Developmental Delay, Hx Migraine, Hx Nerve Disease, Hx Seizures, Hx Spinal Cord Injury, Hx Transient Ischemic Attacks (TIA), Other Neuro Impairments/Disorders Psychiatric History: Denies: Hx Anxiety, Hx Eating Disorder, Hx Depression, Hx of Violent Episodes Against Others - Immunization History Date of Tetanus Vaccine: unk Date of Influenza Vaccine: unk Infectious Disease History: No Infectious Disease History: Denies: Hx Clostridium Difficile, Hx Hepatitis, Hx Human Immunodeficiency Virus (HIV), Hx of Known/Suspected MRSA, Hx Tuberculosis, Hx Known/Suspected VRE , Hx Known/Suspected VRSA, History Other Infectious Disease, Traveled Outside the [place] in Last 30 Days - Family History Known Family History: Positive: Cardiac Disease Negative: Seizure Disorder - Social History Alcohol Use: None Alcohol Amount: 2-4 drinks Hx Substance Use: Yes Substance Use Type: Reports: None Substance Use Comment - Amount & Last Used: once per week Hx Tobacco Use: Yes Smoking Status (MU): Heavy Every Day Tobacco Smoker Type: Cigarettes Have You Smoked in the Last Year: No Review of Systems Negative: Fever Positive: Chest Pain Positive: Other - Positive: difficulty with deep breaths. Negative: Shortness Of Breath Gastrointestinal: Negative - constipation Negative: Abdominal Pain, Vomiting, Nausea Negative: dysuria, hematuria Musculoskeletal: Negative - leg swelling All Other Systems Reviewed And Are Negative: Yes Physical Exam - Summary Physical Exam Summary: Constitutional: Well-developed, Well-nourished, Alert. (-) Distressed Skin: Warm, Dry HENT: Normocephalic; Atraumatic Eyes: Conjunctiva normal Neck: Musculoskeletal ROM normal neck. (-) JVD, (-) Stridor, (-) Tracheal deviation Cardio: Rhythm regular, rate normal, Heart sounds normal; Intact distal pulses; The pedal pulses are 2+ and symmetric. Radial pulses are 2+ and symmetric. (-) Murmur Pulmonary/Chest wall: Effort normal. (-) Respiratory distress, (-) Wheezes, (-) Rales Abd: Soft, (-) epigastric tenderness, (-) Distension, (-) Guarding, (-) Rebound Musculoskeletal: (-) Edema Lymph: (-) Cervical adenopathy Neuro: Alert, Oriented x3 Psych: anxious Triage Information Reviewed: Yes Vital Signs On Initial Exam: Initial Vitals Temp Pulse Resp BP Pulse Ox 97.7 F 85 18 124/76 99 10/25/18 19:02 10/25/18 19:02 10/25/18 19:02 10/25/18 19:02 10/25/18 19:02 Vital Signs Reviewed: Yes Diagnostics - Vital Signs Vital Signs Temp Pulse Resp BP Pulse Ox 10/25/18 19:02 97.7 F 85 18 124/76 99 - Laboratory Result Diagrams: 10/25/18 19:57 10/25/18 19:57 Lab Statement: Any lab studies that have been ordered have been reviewed, and results considered in the medical decision making process. - Radiology CXR Radiology Interpretation Completed By: ED Physician Summary of Radiographic Findings: No acute disease. Pending official imaging report. - EKG 19:45 Cardiac Rate: NL - 84 bpm EKG Rhythm: Sinus Rhythm Summary of EKG Findings: Normal sinus rhythm at 84bpm, sI, qIII, tIII, normal MI , normal QRS, normal QTc, normal axis, normal ST, normal T-waves, nonspecific EKG. Not similar to EKG done 11/04/13. Re-Evaluation - Re-Evaluation First Eval Re-Evaluation Time: 21:10 Change: Improved Comment: Patient is feeling better Course/Dx - Course Course Of Treatment: A 23 y/o female brought in by [facility] ambulance presents to [facility] with a chief complaint of left sided chest pain since 16:45 10/25/18. The patient has a Hx of DM, a FHx of PR and is a light every day smoker. The physical exam was unremarkable other than the patient appearing anxious. EKG at 19:45 showed Normal sinus rhythm at 84bpm, sI, qIII, tIII, normal MI, normal QRS , normal QTc, normal axis, normal ST, normal T-waves, nonspecific EKG. Not similar to EKG done 11/04/13. In the ED course the patient was given 1 gm in 100 mls at 200mls/hr IV Magnesium sulfate/dextrose from 20:58-21:27 .Blood work and chemistries obtained and are WNL. Upon re-eval the patient was feeling better. The patient will be discharged home and is agreeable with this plan. - Diagnoses Provider Diagnoses: Chest pain Discharge - Sign-Out/Discharge Documenting (check all that apply): Patient Departure - DC Patient Received Moderate/Deep Sedation with Procedure: No - Discharge Plan Condition: Good Disposition: HOME Patient Education Materials: Chest Pain (ED) Print Language: INDIAN Forms: *Work Release Referrals: William Waters, [employer] [Primary Care Provider] - Additional Instructions: Return to the ED if you experience any new or worsening symptoms. - Billing Disposition and Condition Condition: GOOD Disposition: Home - Attestation Statements Document Initiated by Héctor: Yes Documenting Scribe: Tarun Fagan Provider For Whom Laliibe is Documenting (Include Credential): Janae Bess MD Scribe Attestation: I, Tarun Fagan, scribed for Janae Shaikh MD on 10/25/18 at 2354. Scribe Documentation Reviewed: Yes Provider Attestation: The documentation as recorded by the Tarun medel accurately reflects the service I personally performed and the decisions made by me, Janae Shaikh MD Status of Scribe Document: Viewed
[2018-10-25 20:03] LABS: ABS Basophils 0.1 10^3/ul (0-0.2); ABS Eosinophils 0.2 10^3/ul (0-0.6); ABS Monocytes 0.7 10^3/ul (0-0.8); ABS Neutrophils 6.9 10^3/ul (1.5-7.7); ABS Nucleated RBC 0 10^3/ul; Eosinophil % 1.8 %; Hematocrit 42 % (35-47); Hemoglobin 14.1 g/dl (12.0-16.0); Lymphocyte % 27.8 %; Mean Corpuscular HGB Conc 34 g/dl (31-36); Mean Corpuscular Hemoglobin 29 pg (27-31); Mean Corpuscular Volume 85 fL (80-97); Mean Platelet Volume 8.6 fL (7.4-10.4); Nucleated Red Blood Cells % 0.1; Platelet Count 275 10^3/ul (150-450); Red Blood Count 4.92 10^6/ul (4.00-5.40); Red Cell Distribution Width 13 % (10.5-15); White Blood Count 10.8 10^3/ul (3.5-10.8)
[2018-10-25 20:21] LABS: ALT 26 U/L (7-52); AST 14 U/L (13-39); Albumin 4.3 g/dL (3.2-5.2); Albumin/Globulin Ratio 1.4 (1-3); Alkaline Phosphatase 46 U/L (34-104); Anion Gap 5 mmol/L (2-11); BUN/Creatinine Ratio 16.9 (8-20); Blood Urea Nitrogen 12 mg/dL (6-24); CO2 Carbon Dioxide 27 mmol/L (22-32); Calcium 9.5 mg/dL (8.6-10.3); Chloride 107 mmol/L (101-111); EGFR African American 125.7 (>60); EGFR Non-African American 103.9 (>60); Globulin 3.1 g/dL (2-4); Glucose 82 mg/dL (70-100); Magnesium 1.8 mg/dL (1.9-2.7); Potassium 4.2 mmol/L (3.5-5.0); Sodium 139 mmol/L (135-145); Total Protein 7.4 g/dL (6.4-8.9)
[2018-10-25 20:27] LABS: HCG Pregnancy < 0.60 mIU/mL
[2018-10-25 20:40] LABS: TSH (Thyroid Stimulating Horm) 4.03 mcIU/mL (0.34-5.60)
[2018-10-25] MEDS ORDERED: Magnesium Sulfate 1 GM IV* 1 GM/100 ML BAG IV ONE (20:58)
[2018-10-25] MEDS ORDERED: Aspirin 81 mg CHEW TAB* 81 MG TAB.CHEW PO ONE (23:23)
[2018-10-25 23:38] VITALS: BP 120/74
== END 2018-10-25 23:35 | disposition home or self-care (01) ==
LOC: ED 18:50
DX: R07.89 Other chest pain (principal); E11.9 Type 2 diabetes mellitus without complications; Z88.1 Allergy status to other antibiotic agents; Z88.0 Allergy status to penicillin; Z82.49 Family history of ischemic heart disease and other diseases of the circulatory system; F17.210 Nicotine dependence, cigarettes, uncomplicated
CPT/HCPCS: 36415; 71045; 80053; 83605; 83735; 84443; 84484; 84702; 85025; 85379; 93005; 96365; 99283; J3475

== ENCOUNTER 2019-06-01 13:05 | Emergency (ER) | payer BC ==
[2019-06-01 14:34] LABS: ABS Basophils 0.1 10^3/ul (0-0.2); ABS Eosinophils 0.2 10^3/ul (0-0.6); ABS Lymphocytes 2.6 10^3/ul (1.0-4.8); ABS Monocytes 0.6 10^3/ul (0-0.8); ABS Neutrophils 6.1 10^3/ul (1.5-7.7); Eosinophil % 1.6 %; Hematocrit 43 % (35-47); Hemoglobin 14.4 g/dL (12.0-16.0); Lymphocyte % 27.2 %; Mean Corpuscular HGB Conc 34 g/dL (31-36); Mean Corpuscular Hemoglobin 29 pg (27-31); Mean Corpuscular Volume 85 fL (80-97); Mean Platelet Volume 8.5 fL (7.4-10.4); Platelet Count 267 10^3/uL (150-450); Red Blood Count 5.04 10^6 /uL (3.70-4.87); Red Cell Distribution Width 14 % (10-15); White Blood Count 9.4 10^3/uL (3.5-10.8)
[2019-06-01 14:53] LABS: ALT 27 U/L (7-52); AST 13 U/L (13-39); Albumin/Globulin Ratio 1.3 (1-3); Alkaline Phosphatase 47 U/L (34-104); Anion Gap 6 mmol/L (2-11); BUN/Creatinine Ratio 21.5 (8-20); Blood Urea Nitrogen 14 mg/dL (6-24); C Reactive Protein 14.63 mg/L (<8.01); CO2 Carbon Dioxide 23 mmol/L (22-32); Calcium 8.9 mg/dL (8.6-10.3); Chloride 108 mmol/L (101-111); EGFR African American 139.2 (>60); EGFR Non-African American 115.1 (>60); Globulin 3.2 g/dL (2-4); Glucose 91 mg/dL (70-100); Sodium 137 mmol/L (135-145); Total Protein 7.2 g/dL (6.4-8.9)
[2019-06-01 14:59] LABS: HCG Pregnancy < 0.60 mIU/mL
--- NOTE | 2019-06-01 16:18 | ED ---
Abdominal Pain/Female - HPI Summary HPI Summary: This pt is a 23 Y/O F presenting to [facility] accompanied by her girlfriend with a CC of abdominal pain that is located suprapubically that is rated an 8/10 in severity and is described as burning. She states that the pain is continuously increasing in severity and started on 05/28/19. She states that the pain started on her right side and is currently radiating into the middle of her suprapubic region. She states that since the onset she has been nauseas and has episodic vomiting. She also has pain that radiates into her back. She states that she was seen at the [facility] but they found no abnormal findings in her urine when she got tested for a UTI. She denies any fevers, chills, SOB, CP, headaches, and sore throats. She has no alleviating or aggravating factors. She has a PMHx of diabetes, hypercholesterolemia, and has a family history of cardiac diseases. - History of Current Complaint Chief Complaint: Keely Stated Complaint: LOWER PELVIC PAIN RT SIDE PER PT Time Seen by Provider: 06/01/19 15:55 Hx Obtained From: Patient Hx Last Menstrual Period: 10/04/12 Onset/Duration: Sudden Onset, Lasting Days - 4, Still Present, Worse Since - onset Timing: Seconds Severity Currently: Severe Pain Intensity: 8 Pain Scale Used: 0-10 Numeric Location: Discrete At: RLQ Radiates: Yes Radiates to: Back, Other - suprapubic, bladder Aggravating Factor(s): Nothing Alleviating Factor(s): Nothing Associated Signs and Symptoms: Positive: Back Pain, Nausea, Vomiting. Negative : Fever, Chest Pain Allergies/Adverse Reactions: Allergies Allergy/AdvReac Type Severity Reaction Status Date / Time amoxicillin [From Augmentin] Allergy Unknown Verified 10/25/18 19:04 Reaction Details azithromycin [From Zithromax] Allergy Unknown Verified 10/25/18 19:04 Reaction Details clavulanic acid Allergy Unknown Verified 10/25/18 19:04 [From Augmentin] Reaction Details PMH/Surg Hx/FS Hx/Imm Hx Previously Healthy: Yes Endocrine/Hematology History: Reports: Hx Diabetes - diet controlled Denies: Hx Anticoagulant Therapy, Hx Thyroid Disease Cardiovascular History: Reports: Hx Hypercholesterolemia Denies: Hx Cardiac Arrest, Hx Hypertension, Hx Peripheral Vascular Disease Respiratory History: Denies: Hx Asthma History: Denies: Hx Dialysis Musculoskeletal History: Denies: Hx Arthritis, Hx Rheumatoid Arthritis, Hx Back Problems, Hx Bursitis , Hx Congenital Bone Abnormalities, Hx Fibromyalgia, Hx Gout, Hx Orthopedic Injury, Hx Osteoporosis, Hx Scoliosis, Hx Tendonitis, Other Musculoskeletal History Sensory History: Reports: Hx Contacts or Glasses Denies: Hx Cataracts, Hx Glaucoma Opthamlomology History: Reports: Hx Contacts or Glasses Denies: Hx Cataracts, Hx Glaucoma Neurological History: Reports: Hx Headaches - when stressed Denies: Hx Dementia, Hx Developmental Delay, Hx Migraine, Hx Nerve Disease, Hx Seizures, Hx Spinal Cord Injury, Hx Transient Ischemic Attacks (TIA), Other Neuro Impairments/Disorders Psychiatric History: Denies: Hx Anxiety, Hx Eating Disorder, Hx Depression, Hx of Violent Episodes Against Others - Immunization History Date of Tetanus Vaccine: unk Date of Influenza Vaccine: unk Infectious Disease History: No Infectious Disease History: Denies: Hx Clostridium Difficile, Hx Hepatitis, Hx Human Immunodeficiency Virus (HIV), Hx of Known/Suspected MRSA, Hx Tuberculosis, Hx Known/Suspected VRE , Hx Known/Suspected VRSA, History Other Infectious Disease, Traveled Outside the [place] in Last 30 Days - Family History Known Family History: Positive: Cardiac Disease Negative: Seizure Disorder - Social History Alcohol Use: None Alcohol Amount: 2-4 drinks Hx Substance Use: Yes Substance Use Type: Reports: None Substance Use Comment - Amount & Last Used: once per week Hx Tobacco Use: Yes Smoking Status (MU): Heavy Every Day Tobacco Smoker Type: Cigarettes Have You Smoked in the Last Year: No Review of Systems Negative: Fever, Chills Negative: Sore Throat Negative: Chest Pain Negative: Shortness Of Breath Positive: Abdominal Pain - RLQ, radiates into the suprapubic and bladder , Vomiting, Nausea Positive: Other - radiated back pain Negative: Headache All Other Systems Reviewed And Are Negative: Yes Physical Exam - Summary Physical Exam Summary: Appearance: The patient is well-nourished in no acute distress and in no acute pain. Skin: The skin is warm and dry and skin color reflects adequate perfusion. HEENT: The head is normocephalic and atraumatic. The pupils are equal and reactive. The conjunctivae are clear and without drainage. Nares are patent and without drainage. Mouth reveals moist mucous membranes and the throat is without erythema and exudate. The external ears are intact. The ear canals are patent and without drainage. The tympanic membranes are intact. Neck: The neck is supple with full range of motion and non-tender. There are no carotid bruits. There is no neck vein distension. Respiratory: Chest is non-tender. Lungs are clear to auscultation and breath sounds are symmetrical and equal. Cardiovascular: Heart is regular rate and rhythm. There is no murmur or rub auscultated. There is no peripheral edema and pulses are symmetrical and equal. Abdomen: The abdomen is soft and Tender in the RLQ and suprapubic midline. There are normal bowel sounds heard in all four quadrants and there is no organomegaly palpated. Musculoskeletal: There is no back tenderness noted. Extremities are non-tender with full range of motion. There is good capillary refill. There is no peripheral edema or calf tenderness elicited. Neurological: Patient is alert and oriented to person, place and time. The patient has symmetrical motor strength in all four extremities. Cranial nerves are grossly intact. Deep tendon reflexes are symmetrical and equal in all four extremities. Psychiatric: The patient has an appropriate affect and does not exhibit any anxiety or depression. Triage Information Reviewed: Yes Vital Signs On Initial Exam: Initial Vitals Temp Pulse Resp BP Pulse Ox 97.1 F 83 16 142/72 98 06/01/19 13:17 06/01/19 13:17 06/01/19 13:17 06/01/19 13:17 06/01/19 13:17 Vital Signs Reviewed: Yes Diagnostics - Vital Signs Vital Signs Temp Pulse Resp BP Pulse Ox 06/01/19 15:05 97.7 F 70 16 154/90 100 06/01/19 13:17 97.1 F 83 16 142/72 98 - Laboratory Lab Results: Lab Results 06/01/19 06/01/19 06/01/19 Range/Units 14:27 14:27 14:27 WBC 9.4 (3.5-10.8) 10^3/uL RBC 5.04 H (3.70-4.87) 10^6 /uL Hgb 14.4 (12.0-16.0) g/dL Hct 43 (35-47) % MCV 85 (80-97) fL MCH 29 (27-31) pg MCHC 34 (31-36) g/dL RDW 14 (10-15) % Plt Count 267 (150-450) 10^3/uL MPV 8.5 (7.4-10.4) fL Neut % (Auto) 64.6 % Lymph % (Auto) 27.2 % Cascade % (Auto) 6.0 % Eos % (Auto) 1.6 % Baso % (Auto) 0.6 % Absolute Neuts (auto) 6.1 (1.5-7.7) 10^3/ul Absolute Lymphs (auto) 2.6 (1.0-4.8) 10^3/ul Absolute Monos (auto) 0.6 (0-0.8) 10^3/ul Absolute Eos (auto) 0.2 (0-0.6) 10^3/ul Absolute Basos (auto) 0.1 (0-0.2) 10^3/ul Absolute Nucleated RBC 0.0 10^3/ul Nucleated RBC % 0.0 Sodium 137 (135-145) mmol/L Potassium 4.0 (3.5-5.0) mmol/L Chloride 108 (101-111) mmol/L Carbon Dioxide 23 (22-32) mmol/L Anion Gap 6 (2-11) mmol/L BUN 14 (6-24) mg/dL Creatinine 0.65 (0.51-0.95) mg/dL Est GFR ( Amer) 139.2 (>60) Est GFR (Non-Af Amer) 115.1 (>60) BUN/Creatinine Ratio 21.5 H (8-20) Glucose 91 (70-100) mg/dL Lactic Acid 1.0 (0.5-2.0) mmol/L Calcium 8.9 (8.6-10.3) mg/dL Total Bilirubin 0.30 (0.2-1.0) mg/dL AST 13 (13-39) U/L ALT 27 (7-52) U/L Alkaline Phosphatase 47 (34-104) U/L C-Reactive Protein 14.63 H (<8.01) mg/L Total Protein 7.2 (6.4-8.9) g/dL Albumin 4.0 (3.2-5.2) g/dL Globulin 3.2 (2-4) g/dL Albumin/Globulin Ratio 1.3 (1-3) Beta HCG, Quant < 0.60 mIU/mL Result Diagrams: 06/01/19 14:27 06/01/19 14:27 Lab Statement: Any lab studies that have been ordered have been reviewed, and results considered in the medical decision making process. - Ultrasound Pelvic/Transvaginal US Ultrasound Interpretation Completed By: Radiologist Summary of Ultrasound Findings: 1. THERE IS A SMALL AMOUNT OF SIMPLE FLUID WITHIN THE CUL-DE-SAC. THIS MAY BE PHYSIOLOGIC IN A REPRODUCTIVE AGE FEMALE. 2. NO SONOGRAPHIC FEATURES OF TORSION. PLEASE NOTE THAT PARTIAL OR INTERMITTENT TORSION MAY BE SONOGRAPHICALLY NORMAL. ED physician has reviewed this report. Abdominal Pain Fem Course/Dx - Course Course Of Treatment: Ms. Francis presents to the emergency department complaining of suprapubic and right adnexal pain. She was evaluated at [facility] with a urinalysis that was negative. She comes in complaining of severe pain and she does have some aggravation of the pain after urinating. She is tender in the suprapubic and right adnexal area. She was nontoxic in appearance with stable vitals. Ultrasound was obtained transvaginally and was unremarkable. Her labs reveal no leukocytosis and a very slight elevation of her CRP at 15 with an equivocal urinalysis. I discussed with her the differential. I'm not sure exactly what's causing her pain it could be that she does have a urinary tract infection and her urine has been sent for cultures. She feels that something more serious is going on and after a long conversation we agreed to do a CT scan. CT is unremarkable for any acute pathology. She is still dissatisfied and is requesting a pelvic exam but is requesting a female provider. It's the end of shift and Dr. Bianchi is taking over for me at this point and has agreed to do the pelvic exam. - Diagnoses Provider Diagnoses: Abdominal pain Discharge ED - Sign-Out/Discharge Documenting (check all that apply): Sign-Out Patient Signing out patient TO: Berry Bianchi Patient Received Moderate/Deep Sedation with Procedure: No - Discharge Plan Condition: Stable Disposition: HOME Prescriptions: Sulfamethox/Trimethoprim DS* [Bactrim DS 800/160 TAB*] 1 tab PO BID 3 Days #5 tab Patient Education Materials: Dysuria (ED) Referrals: [facility] [Outside] - 2 Days Additional Instructions: You were seen in the emergency department for abdominal pain. Urine showed a very trace amount of bacteria. We will treat you as an infection since you are symptomatic. Your CT scan did not show any abnormalities and her transvaginal ultrasound showed trace fluid which can be normal in a female. Take bactrim twice a day for 3 days If any studies were not completed at the time of discharge you will be called with the relevant results. Please follow up with your primary care doctor in next 2-3 days and return to emergency department for worsening or concerning symptoms. It was a pleasure taking care of you today. - Billing Disposition and Condition Condition: STABLE Disposition: Home - Attestation Statements Document Initiated by Héctor: Yes Documenting Scribe: Shoaib Mantilla Provider For Whom Héctor is Documenting (Include Credential): Bekah Duarte MD Scribe Attestation: Shoaib Quinonez, scribed for Bekah Duarte MD on 06/02/19 at 1043. Scribe Documentation Reviewed: Yes Provider Attestation: The documentation as recorded by the Shoaib medel accurately reflects the service I personally performed and the decisions made by , Bekah Duarte MD Status of Scribe Document: Viewed
[2019-06-01 18:25] LABS: Urine Appearance Cloudy; Urine Bacteria Absent (Absent); Urine Bilirubin Negative (Negative); Urine Blood Negative (Negative); Urine Color Yellow; Urine Glucose Negative (Negative); Urine Ketones Negative (Negative); Urine Nitrite Negative (Negative); Urine Protein Negative (Negative); Urine Red Blood Cell Absent (Absent); Urine Specific Gravity 1.021 (1.010-1.030); Urine Squamous Epithelial Cell Present (Absent); Urine Urobilinogen Negative (Negative); Urine White Blood Cell 1+(6-10/hpf) (Absent)
[2019-06-01] MEDS ORDERED: oxyCODONE/Acetamin 5/325 MG* TAB PO ONE (18:43)
[2019-06-01] MEDS ORDERED: Sulfamethox/Trimethoprim DS 800/160* TAB PO ONE (20:30)
--- NOTE | 2019-06-01 20:36 | ED ---
Progress - Progress Note Progress Note: Pt is a signout from Dr. Duarte to Dr. Bianchi at [address] interpretation. Pelvic exam was performed and was normal. External Exam: normal labia, no masses, lacerations or abnormal lesions visualized Speculum Exam: Cervical os closed, no signs of inflammation, no discharge, no blood in vault Bimanual Exam: no CMT, no adnexal tenderness bilaterally Swab sent. Treat for UTI given dysuria and 1+ LE on UA Course/Dx - Course Course Of Treatment: Pt is a signout from Dr. Duarte to Dr. Bianchi at [address] interpretation. Pelvic exam was performed and was normal. - Diagnoses Provider Diagnoses: Abdominal pain Discharge ED - Sign-Out/Discharge Documenting (check all that apply): Receiving Sign-Out Receiving patient FROM: Huang Duarte - Pt is a signout from Dr. Duarte to Dr. Bianchi at [address] interpretation. Patient Received Moderate/Deep Sedation with Procedure: No - Discharge Plan Condition: Stable Disposition: HOME Prescriptions: Sulfamethox/Trimethoprim DS* [Bactrim DS 800/160 TAB*] 1 tab PO BID 3 Days #5 tab Patient Education Materials: Dysuria (ED) Referrals: [facility] [Outside] - 2 Days Additional Instructions: You were seen in the emergency department for abdominal pain. Urine showed a very trace amount of bacteria. We will treat you as an infection since you are symptomatic. Your CT scan did not show any abnormalities and her transvaginal ultrasound showed trace fluid which can be normal in a female. Take bactrim twice a day for 3 days If any studies were not completed at the time of discharge you will be called with the relevant results. Please follow up with your primary care doctor in next 2-3 days and return to emergency department for worsening or concerning symptoms. It was a pleasure taking care of you today. - Billing Disposition and Condition Condition: STABLE Disposition: Home - Attestation Statements Document Initiated by Scribe: Yes Documenting Scribe: Sidney Tabor Provider For Whom Héctor is Documenting (Include Credential): Dr. Berry Bianchi MD Scribe Attestation: ISidney, scribed for Dr. Berry Bianchi MD on 06/01/19 at 2051. Scribe Documentation Reviewed: Yes Provider Attestation: The documentation as recorded by the scribe, Sidney Tabor accurately reflects the service I personally performed and the decisions made by me, Dr. Berry Bianchi MD Status of Scribe Document: Viewed
[2019-06-01 20:49] VITALS: BP 127/67
[2019-06-02 13:44] LABS: Chlamydia trachomatis NAA Negative (Negative); Neisseria gonorrhoeae (GC) NAA Negative (Negative)
--- NOTE | 2019-06-03 08:15 | PN ---
Progress Note - Progress Note Date of Service: 06/01/19 Note: BV results positive Called patient at 8:15am to make aware No answer Left message to call back Flagyl sent to RX
== END 2019-06-01 20:48 | disposition home or self-care (01) ==
LOC: ED 13:05
DX: R10.9 Unspecified abdominal pain (principal); E11.9 Type 2 diabetes mellitus without complications; E78.00 Pure hypercholesterolemia, unspecified; F17.210 Nicotine dependence, cigarettes, uncomplicated; Z88.1 Allergy status to other antibiotic agents
CPT/HCPCS: 36415; 74176; 76830; 76856; 80053; 81003; 81015; 83605; 84702; 85025; 86140; 87077; 87086; 87088; 87480; 87491; 87510; 87591; 87661; 99283; A9270-GY

== ENCOUNTER 2019-11-18 22:27 | Emergency (ER) | payer BC ==
[2019-11-18] MEDS ORDERED: Morphine 4 MG/ML VIAL (1 ml) 4 MG/ML VIAL IV ONE (23:14)
[2019-11-18] MEDS ORDERED: Ketorolac INJ* 30 MG/ML 1 ML VIAL IV PUSH ONE (23:14)
--- NOTE | 2019-11-18 23:19 | ED ---
Complex/Multi-Sys Presentation - HPI Summary HPI Summary: Patient is a 24 y/o F presenting to [facility] with complaints of upper back pain, fatigue, and diffuse myalgia. She states that the fatigue and myalgia developed last evening. Patient states that she slept more than typically. Upper back pain with radiation to right arm down the elbow onset overnight and worsened today. The pain is characterized as constant and severe. She reports temperature of 99.9 F at home. No cough and no SOB noted, but she states that her pain worsens with deep breaths. PMHx of diabetes reported. Home medications and allergies are reviewed. - History Of Current Complaint Chief Complaint: EDGeneral Time Seen by Provider: 11/18/19 23:03 Hx Obtained From: Patient Onset/Duration: Lasting Days, Still Present Timing: Constant, Days Severity Currently: Severe Location: Pain At: - upper back, Radiates To: - right arm Aggravating Factor(s): deep breaths Associated Signs And Symptoms: Positive: Back Pain, Other - positive - fatigue, myalgia. Negative: SOB, Cough, Fever - Allergies/Home Medications Allergies/Adverse Reactions: Allergies Allergy/AdvReac Type Severity Reaction Status Date / Time amoxicillin [From Augmentin] Allergy Unknown Verified 10/25/18 19:04 Reaction Details azithromycin [From Zithromax] Allergy Unknown Verified 10/25/18 19:04 Reaction Details clavulanic acid Allergy Unknown Verified 10/25/18 19:04 [From Augmentin] Reaction Details Home Medications: Home Medications NK [No Home Medications Reported] 11/18/19 [History Confirmed 11/18/19] PMH/Surg Hx/FS Hx/Imm Hx Endocrine/Hematology History: Reports: Hx Diabetes - diet controlled Denies: Hx Anticoagulant Therapy, Hx Thyroid Disease Cardiovascular History: Reports: Hx Hypercholesterolemia Denies: Hx Cardiac Arrest, Hx Hypertension, Hx Peripheral Vascular Disease Respiratory History: Denies: Hx Asthma History: Denies: Hx Dialysis Musculoskeletal History: Denies: Hx Arthritis, Hx Rheumatoid Arthritis, Hx Back Problems, Hx Bursitis , Hx Congenital Bone Abnormalities, Hx Fibromyalgia, Hx Gout, Hx Orthopedic Injury, Hx Osteoporosis, Hx Scoliosis, Hx Tendonitis, Other Musculoskeletal History Sensory History: Reports: Hx Contacts or Glasses Denies: Hx Cataracts, Hx Glaucoma Opthamlomology History: Reports: Hx Contacts or Glasses Denies: Hx Cataracts, Hx Glaucoma Neurological History: Reports: Hx Headaches - when stressed Denies: Hx Dementia, Hx Developmental Delay, Hx Migraine, Hx Nerve Disease, Hx Seizures, Hx Spinal Cord Injury, Hx Transient Ischemic Attacks (TIA), Other Neuro Impairments/Disorders Psychiatric History: Denies: Hx Anxiety, Hx Eating Disorder, Hx Depression, Hx of Violent Episodes Against Others - Immunization History Date of Tetanus Vaccine: unk Date of Influenza Vaccine: unk Infectious Disease History: No Infectious Disease History: Denies: Hx Clostridium Difficile, Hx Hepatitis, Hx Human Immunodeficiency Virus (HIV), Hx of Known/Suspected MRSA, Hx Tuberculosis, Hx Known/Suspected VRE , Hx Known/Suspected VRSA, History Other Infectious Disease, Traveled Outside the [place] in Last 30 Days - Family History Known Family History: Positive: Cardiac Disease Negative: Seizure Disorder - Social History Alcohol Use: None Alcohol Amount: 2-4 drinks Hx Substance Use: Yes Substance Use Type: Reports: None Substance Use Comment - Amount & Last Used: once per week Hx Tobacco Use: Yes Smoking Status (MU): Heavy Every Day Tobacco Smoker Type: Cigarettes Have You Smoked in the Last Year: No Review of Systems Positive: Fatigue. Negative: Fever - temp of 99.9 F at home Negative: Shortness Of Breath, Cough Positive: Myalgia, Other - upper back pain All Other Systems Reviewed And Are Negative: Yes Physical Exam - Summary Physical Exam Summary: Appearance: Well-appearing, Well-nourished, lying in bed comfortably Skin: Warm, dry, no obvious rash Eyes: sclera anicteric, no conjunctival pallor HENT: mucous membranes moist, pharynx appears normal Neck: Supple, nontender Respiratory: Clear to auscultation, no signs of respiratory distress Cardiovascular: Normal S1, S2. No murmurs. Normal distal pulses in tibial and radial bilaterally. Abdomen: Soft, nontender, normal active bowel sounds present Musculoskeletal: Strength/ROM Intact; patient is noted to have pain across the upper back diffusely, but no point tenderness along the spine. Neurological: A&Ox3, awake and alert, mentation is normal, speech is fluent and appropriate Psychiatric: affect is normal, does not appear anxious or depressed Triage Information Reviewed: Yes Vital Signs On Initial Exam: Initial Vitals Temp Pulse Resp BP Pulse Ox 98.2 F 97 16 116/64 98 11/18/19 22:38 11/18/19 22:38 11/18/19 22:38 11/18/19 22:38 11/18/19 22:38 Vital Signs Reviewed: Yes Procedures - Sedation Patient Received Moderate/Deep Sedation with Procedure: No Diagnostics - Vital Signs Vital Signs Temp Pulse Resp BP Pulse Ox 11/18/19 22:38 98.2 F 97 16 116/64 98 - Laboratory Result Diagrams: 11/18/19 23:38 11/18/19 23:38 Lab Statement: Any lab studies that have been ordered have been reviewed, and results considered in the medical decision making process. - Radiology CXR Radiology Interpretation Completed By: ED Physician Summary of Radiographic Findings: No acute process, pending official report. Complex Multi-Symp Course/Dx Course Of Treatment: Patient is a 24 y/o F presenting to [facility] with complaints of upper back pain, fatigue, and diffuse myalgia. She states that the fatigue and myalgia developed last evening. Patient states that she slept more than typically. Upper back pain with radiation to right arm down the elbow onset overnight and worsened today. The pain is characterized as constant and severe. She reports temperature of 99.9 F at home. No cough and no SOB noted, but she states that her pain worsens with deep breaths. PMHx of diabetes reported. On physical exam, patient is noted to have pain across the upper back diffusely, but no point tenderness along the spine. CXR showed no acute process. Bloodwork was obtained and within normal limits with exception of potassium 3.2, carbon dioxide 19, calcium 8, CRP 123.19. Influenza A and B were negative. During ED course, patient received morphine 4 mg IV, toradol 10 mg IV. My concern is the severe acute pain in the upper back along with elevated CRP. Only risk factor is diabetes, and that is diet controlled. Patient declined CT imaging of spine. She will return in the morning for MRI of thoracic spine. She was given 10 mg Flexeril PO and discharged to home. - Diagnoses Provider Diagnoses: Thoracic back pain Discharge ED - Sign-Out/Discharge Documenting (check all that apply): Patient Departure - discharge - Discharge Plan Condition: Stable Disposition: HOME Patient Education Materials: Back Pain (ED) Referrals: No Primary Care Phys,NOPCP [Primary Care Provider] - Additional Instructions: The tests we did tonight did not give us an answer as to what is causing your pain. I would like you to return in the morning so we can get you in for an MRI of your thoracic spine. We could do a CT scan tonight but you have declined that. - Billing Disposition and Condition Condition: STABLE Disposition: Home - Attestation Statements Document Initiated by Héctor: Yes Documenting Scribe: DACIA PRICE Provider For Whom Héctor is Documenting (Include Credential): DARRION BATES MD Scribe Attestation: I, DACIA PRICE, scribed for DARRION BATES MD on 11/19/19 at 0608. Scribe Documentation Reviewed: Yes Provider Attestation: The documentation as recorded by the DACIA medel accurately reflects the service I personally performed and the decisions made by me, DARRION BATES MD Status of Scribe Document: Viewed
[2019-11-18 23:46] LABS: ABS Monocytes 0.4 10^3/ul (0-0.8); ABS Neutrophils 4.2 10^3/ul (1.5-7.7); Eosinophil % 0.8 %; Hematocrit 41 % (35-47); Hemoglobin 14.1 g/dL (12.0-16.0); Lymphocyte % 17.1 %; Mean Corpuscular HGB Conc 34 g/dL (31-36); Mean Corpuscular Hemoglobin 29 pg (27-31); Mean Corpuscular Volume 84 fL (80-97); Mean Platelet Volume 8.4 fL (7.4-10.4); Nucleated Red Blood Cells % 0.1; Platelet Count 202 10^3/uL (150-450); Red Blood Count 4.87 10^6 /uL (3.70-4.87); Red Cell Distribution Width 13 % (10-15); White Blood Count 5.6 10^3/uL (3.5-10.8)
[2019-11-19 00:11] LABS: ALT 27 U/L (7-52); AST 22 U/L (13-39); Albumin 3.7 g/dL (3.2-5.2); Albumin/Globulin Ratio 1.2 (1-3); Alkaline Phosphatase 48 U/L (34-104); Anion Gap 8 mmol/L (2-11); BUN/Creatinine Ratio 15.7 (8-20); Blood Urea Nitrogen 8 mg/dL (6-24); C Reactive Protein 123.19 mg/L (<8.01); CO2 Carbon Dioxide 19 mmol/L (22-32); Chloride 109 mmol/L (101-111); EGFR African American 182.5 (>60); EGFR Non-African American 150.8 (>60); Glucose 93 mg/dL (70-100); Potassium 3.2 mmol/L (3.5-5.0); Sodium 136 mmol/L (135-145); Total Protein 6.7 g/dL (6.4-8.9)
[2019-11-19 00:18] LABS: HCG Pregnancy < 0.60 mIU/mL
[2019-11-19 00:29] LABS: Influenza A Molecular Negative (Negative); Influenza B Molecular Negative (Negative)
[2019-11-19] MEDS ORDERED: Cyclobenzaprine TAB* 10 MG PO ONE (00:37)
[2019-11-19 00:56] VITALS: BP 90/69
== END 2019-11-19 00:56 | disposition home or self-care (01) ==
LOC: ED 22:27
DX: M54.6 Pain in thoracic spine (principal); R53.83 Other fatigue; M79.10 Myalgia, unspecified site; E11.9 Type 2 diabetes mellitus without complications; Z88.1 Allergy status to other antibiotic agents; Z88.0 Allergy status to penicillin; F17.210 Nicotine dependence, cigarettes, uncomplicated
CPT/HCPCS: 36415; 71046; 80053; 84702; 85025; 86140; 96374; 96375; 99283; A9270-GY; J1885; J2270

== ENCOUNTER 2019-11-19 14:35 | Emergency (ER) | payer BC ==
--- NOTE | 2019-11-19 16:40 | ED ---
Back Pain - HPI Summary HPI Summary: 24 year old F with hx diabetes arriving via private car to [facility] complains of upper back pain rated 10/10 in severity starting 2 days ago. The pain started in her arms and progressed into her back. No weakness or numbness. She was seen here last night. Had elevated CRP. Was d/c and instructed to return in the morning for an MRI. Symptoms aggravated by nothing. Symptoms alleviated by nothing. No hx IV drug use. Had fall and injured her back in Jun 2019. Medications reviewed. Allergies noted. - History of Current Complaint Chief Complaint: EDBackInjuryPain Stated Complaint: NEEDS A MRI Time Seen by Provider: 11/19/19 16:22 Hx Obtained From: Patient Onset/Duration: Lasting Days - 2, Still Present Onset/Duration: Started Days Ago - 2, Still Present Timing: Constant Severity Currently: Severe Pain Intensity: 10 Pain Scale Used: 0-10 Numeric Aggravating Symptom(s): Nothing Alleviating Symptom(s): Nothing Associated Signs And Symptoms: Negative: Weakness, Numbness - Allergies/Home Medications Allergies/Adverse Reactions: Allergies Allergy/AdvReac Type Severity Reaction Status Date / Time amoxicillin [From Augmentin] Allergy Unknown Verified 11/19/19 14:41 Reaction Details azithromycin [From Zithromax] Allergy Unknown Verified 11/19/19 14:41 Reaction Details clavulanic acid Allergy Unknown Verified 11/19/19 14:41 [From Augmentin] Reaction Details Home Medications: Home Medications NK [No Home Medications Reported] 11/18/19 [History Confirmed 11/18/19] PMH/Surg Hx/FS Hx/Imm Hx Endocrine/Hematology History: Reports: Hx Diabetes - diet controlled Denies: Hx Anticoagulant Therapy, Hx Thyroid Disease Cardiovascular History: Reports: Hx Hypercholesterolemia Denies: Hx Cardiac Arrest, Hx Hypertension Respiratory History: Denies: Hx Asthma Musculoskeletal History: Denies: Hx Arthritis, Hx Rheumatoid Arthritis, Hx Back Problems, Hx Bursitis , Hx Congenital Bone Abnormalities, Hx Fibromyalgia, Hx Gout, Hx Orthopedic Injury, Hx Osteoporosis, Hx Scoliosis, Hx Tendonitis, Other Musculoskeletal History Sensory History: Reports: Hx Contacts or Glasses Opthamlomology History: Reports: Hx Contacts or Glasses Neurological History: Reports: Hx Headaches - when stressed Denies: Hx Developmental Delay, Hx Migraine, Hx Nerve Disease, Hx Seizures, Hx Spinal Cord Injury, Hx Transient Ischemic Attacks (TIA), Other Neuro Impairments/Disorders Psychiatric History: Reports: Hx Anxiety - Surgical History Surgical History: None - Immunization History Date of Tetanus Vaccine: unk Date of Influenza Vaccine: unk Infectious Disease History: No Infectious Disease History: Denies: Hx Clostridium Difficile, Hx Hepatitis, Hx Human Immunodeficiency Virus (HIV), Hx of Known/Suspected MRSA, Hx Tuberculosis, Hx Known/Suspected VRE , Hx Known/Suspected VRSA, History Other Infectious Disease, Traveled Outside the [place] in Last 30 Days - Family History Known Family History: Positive: Hypertension, Diabetes - Social History Alcohol Use: Rare Alcohol Amount: 2-4 drinks Hx Substance Use: Yes Substance Use Comment - Amount & Last Used: once per week Hx Tobacco Use: Yes Smoking Status (MU): Heavy Every Day Tobacco Smoker Type: Cigarettes Have You Smoked in the Last Year: No Review of Systems Positive: Other - upper back pain Negative: Weakness, Numbness All Other Systems Reviewed And Are Negative: Yes Physical Exam - Summary Physical Exam Summary: Constitutional: Well-developed, Well-nourished, Alert. (-) Distressed Skin: Warm, Dry HENT: Normocephalic; Atraumatic Eyes: Conjunctiva normal Neck: Musculoskeletal ROM normal neck. (-) JVD, (-) Stridor, (-) Nuchal rigidity Cardio: Rhythm regular, rate normal, Heart sounds normal; Intact distal pulses; Radial pulses are 2+ and symmetric. (-) Murmur Pulmonary/Chest wall: Effort normal. (-) Respiratory distress, (-) Wheezes, (-) Rales Abd: Soft, (-) tenderness, (-) Distension, (-) Guarding, (-) Rebound Musculoskeletal: (-) Edema; thoracic and cervical spine tenderness; 5/5 strength in BUE Lymph: (-) Cervical adenopathy Neuro: Alert, Oriented x3 Psych: Mood and affect Normal Triage Information Reviewed: Yes Vital Signs On Initial Exam: Initial Vitals Temp Pulse Resp BP Pulse Ox 97.9 F 97 16 117/74 97 11/19/19 14:38 11/19/19 14:38 11/19/19 14:38 11/19/19 14:38 11/19/19 14:38 Vital Signs Reviewed: Yes Procedures - Sedation Patient Received Moderate/Deep Sedation with Procedure: No Diagnostics - Vital Signs Vital Signs Temp Pulse Resp BP Pulse Ox 11/19/19 14:38 97.9 F 97 16 117/74 97 - Laboratory Lab Statement: Any lab studies that have been ordered have been reviewed, and results considered in the medical decision making process. Back Pain Course/Dx - Course Course Of Treatment: 24 y/o F p/w back pain found to have elevated CRP. - well appearing MRI C/T spine ordered given pain at both C and T spine. -signed out pending results - Diagnoses Provider Diagnoses: Back pain Discharge ED - Sign-Out/Discharge Documenting (check all that apply): Sign-Out Patient Signing out patient TO: Huang Hudson - Discharge Plan Condition: Good Disposition: HOME Patient Education Materials: Back Pain (ED) Forms: *Work Release Referrals: [facility] [Outside] Nickolas Lam MD [Medical Doctor] - Additional Instructions: Fortunately your MRI scans did not show any sign of an infection, the major thing I was worried about. For now the pain can be treated symptomatically and you can see your own doctor or contact Dr. Lam's office for further care. - Billing Disposition and Condition Condition: GOOD Disposition: Home - Attestation Statements Document Initiated by Scribe: Yes Documenting Scribe: Shelly Mcbride Provider For Whom Scribe is Documenting (Include Credential): Berry Bianchi MD Scribe Attestation: I, Shelly Mcbride, scribed for Berry Bianchi MD on 11/20/19 at 0700. Scribe Documentation Reviewed: Yes Provider Attestation: The documentation as recorded by the scribeShelly accurately reflects the service I personally performed and the decisions made by me, Berry Bianchi MD Status of Scribe Document: Viewed
[2019-11-19] MEDS: Gadoteridol* (CONTRAST) 279.3 MG/ML 10 ML IV ONE (17:43)
--- NOTE | 2019-11-19 19:35 | ED ---
Progress - Progress Note Progress Note: This pt is a sign out to Dr. Hudson from Dr. Bianchi at shift change 1900 11/18 pending a C sine and T spine MRI and disposition. - Results/Orders Results/Orders: C spine MRI: 1. No acute findings in the cervical spine. 2. Incidentally noted very small 0.5 cm T2 hyperintense enhancing cystic lesion in the midline soft tissues at the inferior base of the tongue. 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 Recommend further evaluation with ultrasound. ED physician has reviewed this report. T Spine MRI: No acute findings in the thoracic spine. ED physician has reviewed this report. Course/Dx - Course Course Of Treatment: This pt is a sign out to Dr. Hudson from Dr. Bianchi at shift change 1900 11/19/2019 pending a C sine and T spine MRI and disposition. C spine MRI: 1. No acute findings in the cervical spine. 2. Incidentally noted very small 0.5 cm T2 hyperintense enhancing cystic lesion. in the midline soft tissues at the inferior base of the tongue. Finding may. represent small thyroglossal duct cyst. Recommend further evaluation with. ultrasound. T spine MRI: No acute findings in the thoracic spine. She will be discharged home with a Dx of back pain. - Diagnoses Provider Diagnoses: Back pain Discharge ED - Sign-Out/Discharge Documenting (check all that apply): Patient Departure - discharge , Receiving Sign-Out Receiving patient FROM: Berry Bianchi - Discharge Plan Referrals: [facility] [Outside] - Attestation Statements Document Initiated by Scribe: Yes Documenting Scribe: Clinton Valdez Provider For Whom Héctor is Documenting (Include Credential): Huang Hudson MD Scribe Attestation: Clinton Quinonez, scribed for Huang Hudson MD on 11/19/19 at 1937. Status of Scribe Document: Ready
[2019-11-19 21:22] VITALS: BP 156/73
== END 2019-11-19 19:52 | disposition home or self-care (01) ==
LOC: ED 14:35
DX: M54.9 Dorsalgia, unspecified (principal); E11.9 Type 2 diabetes mellitus without complications; E78.00 Pure hypercholesterolemia, unspecified; F41.9 Anxiety disorder, unspecified; F17.210 Nicotine dependence, cigarettes, uncomplicated; Z88.0 Allergy status to penicillin; Z88.1 Allergy status to other antibiotic agents
CPT/HCPCS: 72156; 72157; 99282; A9579